=== PATIENT | male | born 1955 | race African-American/Black ===

== ENCOUNTER 2018-10-18 15:11 | Emergency (ER) | payer OTHER ==
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
[2018-10-18 17:36] VITALS: BP 175/97
== END 2018-10-18 17:31 | disposition home or self-care (01) ==
LOC: ED 15:11
DX: S52.501A Unspecified fracture of the lower end of right radius, initial encounter for closed fracture (principal); S60.319A Abrasion of unspecified thumb, initial encounter; V13.4XXA Pedal cycle driver injured in collision with car, pick-up truck or van in traffic accident, initial encounter; Y93.55 Activity, bike riding; Y92.410 Unspecified street and highway as the place of occurrence of the external cause; Z87.891 Personal history of nicotine dependence
CPT/HCPCS: 99282

== ENCOUNTER 2018-10-19 12:32 | Day surgery (SDC) | payer OTHER ==
[2018-10-19] MEDS ORDERED: ceFAZolin 2 GM PREMIX in ORs 2 GM/50 ML BAG IVPB ONE (12:35)
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
[2018-10-19] MEDS ORDERED: Sodium Citrate/Citric Acid* 15 ML UDC ONE (14:33)
[2018-10-19] MEDS ORDERED: fentaNYL* 50 MCG/ML 2 ML VIAL (100 MCG VIAL) ONE (15:45)
[2018-10-19] MEDS ORDERED: Midazolam* 1 MG/ML 2 ML VIAL (2 MG) ONE (15:45)
[2018-10-19] MEDS ORDERED: ROPIVACAINE 5 MG/ML 30 ML BTL (0.5%) ONE (15:48)
[2018-10-19] MEDS ORDERED: Ropivacaine* 2 MG/ML 20 ML VIAL (0.2%) ONE (15:48)
[2018-10-19] MEDS ORDERED: fentaNYL* 50 MCG/ML 2 ML VIAL (100 MCG VIAL) IV PRN (16:36)
[2018-10-19] MEDS ORDERED: Ondansetron INJ* 2 MG/ML VIAL IV PRN (16:36)
[2018-10-19] MEDS ORDERED: Naloxone* 0.4 MG/ML 1 ML VIAL IV PRN (16:36)
[2018-10-19] MEDS ORDERED: Dexamethasone IV* 4 MG/ML 1 ML (4 MG) ONE (17:07)
[2018-10-19] MEDS ORDERED: Propofol* 10 MG/ML 20 ML BTL ONE (17:52)
[2018-10-19] MEDS ORDERED: Labetalol IV* 5 MG/ML 20 ML VIAL ONE (18:15)
[2018-10-19] MEDS ORDERED: Labetalol IV* 5 MG/ML 20 ML VIAL IV PUSH ONE (18:19)
[2018-10-19 18:57] VITALS: BP 155/88
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
== END 2018-10-19 18:55 | disposition home or self-care (01) ==
LOC: OREAST 12:32
PROVIDERS: ATTEND Orthopaedic Surgery
DX: S52.571A Other intraarticular fracture of lower end of right radius, initial encounter for closed fracture (principal); V13.4XXA Pedal cycle driver injured in collision with car, pick-up truck or van in traffic accident, initial encounter; Y92.410 Unspecified street and highway as the place of occurrence of the external cause; G89.18 Other acute postprocedural pain; Z87.891 Personal history of nicotine dependence
CPT/HCPCS: 76000; A9270-GY; C1713; C1776; J0690; J1100; J2250; J2704; J2795; J3010

== ENCOUNTER 2021-01-20 09:26 | Observation (INO) ==
[2021-01-20 11:25] LABS: ABS Lymphocytes 0.9 10^3/ul (1.0-4.8); ABS Monocytes 0.3 10^3/ul (0-0.8); ABS Neutrophils 7.8 10^3/ul (1.5-7.7); Eosinophil % 0.2 %; Hematocrit 47 % (42-52); Hemoglobin 15.9 g/dL (14.0-18.0); Lymphocyte % 9.7 %; Mean Corpuscular HGB Conc 34 g/dL (31-36); Mean Corpuscular Hemoglobin 33 pg (27-31); Mean Corpuscular Volume 98 fL (80-94); Mean Platelet Volume 8.7 fL (7.4-10.4); Nucleated Red Blood Cells % 0.1; Platelet Count 248 10^3/uL (150-450); Red Blood Count 4.79 10^6 /uL (4.18-5.48); Red Cell Distribution Width 13 % (10-15)
[2021-01-20 11:58] LABS: Albumin 4.5 g/dL (3.2-5.2); Albumin/Globulin Ratio 1.5 (1-3); C Reactive Protein 1.1 mg/L (<8.01); Calcium 9.3 mg/dL (8.6-10.3); EGFR African American 81.6 (>60); EGFR Non-African American 67.5 (>60); Potassium 4.5 mmol/L (3.5-5.0); Total Bilirubin 0.5 mg/dL (0.2-1.0); Total Protein 7.5 g/dL (6.4-8.9)
[2021-01-20] MEDS ORDERED: Iohexol 300 (CONTRAST) 10 ML SDV IV ONE (12:24)
[2021-01-20] MEDS ORDERED: fentaNYL 100 mcg/2 ml 50 MCG/ML VIAL IV SLOW PU ONE (14:26)
[2021-01-20] MEDS ORDERED: fentaNYL 100 mcg/2 ml 50 MCG/ML VIAL ONE ×2 (15:46→18:57)
[2021-01-20] MEDS ORDERED: Midazolam 10 mg/10 ml VIAL 1 mg/ml 10 ml VIAL (10 mg) ONE (15:46)
[2021-01-20] MEDS ORDERED: hydrALAZINE 20 mg/ml 1 ML Vial IV IV SLOW PU PRN (17:05)
[2021-01-20] MEDS ORDERED: hydrALAZINE 20 mg/ml 1 ML Vial IV IV SLOW PU ONE (17:05)
[2021-01-20] MEDS ORDERED: Lidocaine 2% PF 5 ML VIAL ONE (18:21)
[2021-01-20] MEDS ORDERED: Prochlorperazine 5 mg/ml 2 ml VIAL (10 mg) IV PRN (18:41)
[2021-01-20] MEDS ORDERED: Naloxone 0.4 mg VIAL 0.4 mg/ml 1 ml VIAL IV PRN (18:41)
[2021-01-20] MEDS ORDERED: Metoprolol Tartrate 5 mg VIAL 5 ml VIAL (1 mg/ml) ONE ×3 (18:55→19:49)
[2021-01-20] MEDS ORDERED: Lidocaine 1% w EPI 1:200,000 SDV 30 ML VIAL ONE (19:16)
[2021-01-20] MEDS ORDERED: Lidocaine 1.5% EPI 1:200,000 30 ML SDV ONE (19:16)
[2021-01-20] MEDS ORDERED: Bupivacaine 0.5% SDV PF 30ML VIAL ONE (19:16)
[2021-01-20] MEDS ORDERED: ceFOXitin 2 GM IVPREMIX 2 GM/50 ML BAG ONE (19:22)
[2021-01-20] MEDS ORDERED: hydrALAZINE 20 mg/ml 1 ML Vial IV ONE ×2 (19:26→20:39)
[2021-01-20] MEDS ORDERED: Ondansetron 4 mg VIAL 2 MG/ML 2 ml VIAL ONE (19:31)
[2021-01-20] MEDS ORDERED: Lidocaine 2% JELLY 20 ML (for OR use) ONE (19:39)
[2021-01-20] MEDS ORDERED: HYDROmorphone 1 MG/1 ML SYRINGE IV SLOW PU PRN (19:49)
[2021-01-20] MEDS ORDERED: Ondansetron 4 mg VIAL 2 MG/ML 2 ml VIAL IV PRN (19:49)
[2021-01-20] MEDS ORDERED: oxyCODONE/Acetamin 5/325 mg TAB PO PRN (19:54)
[2021-01-20] MEDS ORDERED: NS 0.9% 1000 ml BAG 1,000 ML IV SCH (20:00)
[2021-01-20] MEDS ORDERED: ZOSYN 3.375 GM x ONE DOSE over 30 miuntes IV (22:45)
[2021-01-21] MEDS ORDERED: Piperacillin/Tazobactam VIAL 3.375 GM in NS 0.9% 100 ml BAG 100 ML IVPB SCH (04:00)
[2021-01-21 05:48] LABS: Hematocrit 45 % (42-52); Hemoglobin 15.4 g/dL (14.0-18.0); Mean Corpuscular HGB Conc 35 g/dL (31-36); Mean Corpuscular Hemoglobin 33 pg (27-31); Mean Corpuscular Volume 96 fL (80-94); Mean Platelet Volume 8.9 fL (7.4-10.4); Platelet Count 249 10^3/uL (150-450); Red Blood Count 4.63 10^6 /uL (4.18-5.48); Red Cell Distribution Width 13 % (10-15)
[2021-01-21 11:11] VITALS: BP 151/84
== END 2021-01-21 12:15 | disposition home or self-care (01) ==
LOC: ED 09:26 → SSU 17:17 → SDS 17:17
PROVIDERS: ADMIT Surgery; ATTEND Surgery